=== PATIENT | female | born 1990 | race African-American/Black ===

== ENCOUNTER 2017-01-06 19:52 | Emergency (ER) | payer OTHER ==
[~2017-01-06] VITALS: Ht 167.6 cm; Wt 118.8 kg
[2017-01-06 19:53] VITALS: BP 149/96
[2017-01-06] MEDS ORDERED: BACTRIM DS TAB1 EACH PO (19:57)
[2017-01-06] MEDS ORDERED: TRAMADOL 50 MG50 MG PO (19:58)
[2017-01-06] MEDS ORDERED: IBUPROFEN 600600 M1 PO (20:31)
== END 2017-01-06 20:52 | disposition home or self-care (01) ==
LOC: ER 19:52
DX: L02.415 Cutaneous abscess of right lower limb (principal)

== ENCOUNTER 2019-03-02 20:34 | Emergency (ER) | payer OTHER ==
[~2019-03-02] VITALS: Ht 167.6 cm; Wt 136.1 kg
[~2019-03-02 20:34] MED LIST: BACTRIM DS TAB1 EACH PO; IBUPROFEN 600600 M1 PO; TRAMADOL 50 MG50 MG PO
[2019-03-02 20:38] VITALS: BP 167/116
[2019-03-02] MEDS ORDERED: AMOXICILLIN 50500 MG PO (21:28)
[2019-03-02] MEDS ORDERED: ULTRAM 50MG TAB50 MG PO (21:32)
== END 2019-03-02 21:50 | disposition home or self-care (01) ==
LOC: ER 20:34
DX: K02.9 Dental caries, unspecified (principal)